=== PATIENT | male | born 1955 | race Caucasian/White ===

== ENCOUNTER 2017-06-15 12:17 | Emergency (ER) | payer OTHER ==
[~2017-06-15 12:17] MED LIST: DULE200A PO; LISI10TA3 PO; METF1000 PO; SYMB80AE INH
[2017-06-15 12:21] VITALS: BP 93/56; PULSE 107; RESP 20; TEMP 97.8; O2SAT 98
[2017-06-15 12:30] VITALS: BP 80/61; PULSE 90; RESP 16; O2SAT 94
[2017-06-15] MEDS ORDERED: SODIUM CHLOR 0.9% 1000 ML INJ 1,000 ML IV ONE (12:35)
[2017-06-15 12:38] VITALS: BP 101/72; PULSE 94; RESP 18; O2SAT 95
[2017-06-15 12:39] VITALS: O2SAT 94
--- NOTE | 2017-06-15 12:42 | PD ---
HPI Chief Complaint: Skin Problem Time Seen by Provider: 12:28 Travel History International Travel<30 days: No Contact w/Intl Traveler<30days: No Traveled to known affect area: No History of Present Illness HPI The patient is a 62-year-old male who presents to the emergency department for injuries to left upper extremity. The patient states he had one beer to drink earlier today, was trimming trees with a chainsaw, when a branch rolled over his left arm. The patient states she has some abrasions to the left arm and a puncture wound to left forearm. The patient does state he is somewhat lightheaded and dizzy from working out in the heat. The patient does have a history of diabetes and hypertension. The patient denies any injuries to the head, neck, chest, abdomen, or pelvis. He cannot recall his last tetanus shot. He denies any difficulty moving the left upper extremity and denies any weakness, numbness, or tingling to the left upper extremity. He does state is somewhat painful after the treatment branch struck his left arm. PFSH Past Medical History Diabetes: Yes Patient Takes Glucophage: Yes Hypertension: Yes Past Surgical History Abdominal Surgery: Yes (HERNIA) Other Surgery: Yes (ENLARGED SCROTUM) Social History Alcohol Use: Yes Tobacco Use: No Substance Use: No Allergies-Medications (Allergen,Severity, Reaction): Coded Allergies: No Known Allergies (Unverified , 06/15/17) Reported Meds & Prescriptions Reported Meds & Active Scripts Active Lisinopril 10 Mg Tab 10 Mg PO DAILY Metformin (Metformin HCl) 1,000 Mg Tab 1,000 Mg PO BIDPC With meals Review of Systems Except as stated in HPI: all other systems reviewed are Neg HENT: Positive: Lightheadedness Cardiovascular: Positive: Diaphoresis (from working out in the heat), No: Chest Pain or Discomfort Respiratory: No: Shortness of Breath Gastrointestinal: No: Nausea, Vomiting Skin: Positive Other (as noted in history of present illness) Neurologic: Positive: Dizziness, No: Paresthesia, Sensory Disturbance Physical Exam Narrative GENERAL: Awake, alert, pleasant 62-year-old male who appears his stated age and is in no acute respiratory distress. SKIN: The patient's clothes are wet from diaphoresis. The patient has superficial abrasions to the left humerus and left forearm. There is a puncture wound to the volar aspect left forearm notes approximately 2 cm in diameter with subcutaneous tissue visible but no visible tendon involvement. HEAD: Atraumatic. Normocephalic. EYES: Pupils equal and round. No scleral icterus. No injection or drainage. ENT: No nasal bleeding or discharge. Mucous membranes pink and moist. NECK: Trachea midline. No JVD. CARDIOVASCULAR: Regular, tachycardic with a heart rate of 105. RESPIRATORY: No accessory muscle use. Clear to auscultation. Breath sounds equal bilaterally. GASTROINTESTINAL: Abdomen soft, non-tender, nondistended. No rebound tenderness. MUSCULOSKELETAL: Patient has superficial abrasions to the left humerus and left forearm with a puncture wound to the volar aspect the left forearm. Strength with abduction of the left shoulder is 5/5. Flexion of the left elbow is 5/5. Extension left elbow is 5/5. Cleaning Custodian strength is 5/5. Positive left radial pulse. NEUROLOGICAL: Awake and alert. No obvious cranial nerve deficits. Motor grossly within normal limits. Normal speech. Sensation is intact in the radial , median, and ulnar distribution of the left upper extremity. PSYCHIATRIC: Appropriate mood and affect; insight and judgment normal. Data Data Last Documented VS Vital Signs Date Time Temp Pulse Resp B/P Pulse Ox O2 Delivery O2 Flow Rate FiO2 06/15/17 12:39 94 Room Air 06/15/17 12:38 94 18 101/72 06/15/17 12:21 97.8 Orders Electrocardiogram (06/15/17 12:35) Basic Metabolic Panel (Bmp) (06/15/17 12:35) Complete Blood Count With Diff (06/15/17 12:35) Ecg Monitoring (06/15/17 12:35) Iv Access Insert/Monitor (06/15/17 12:35) Oximetry (06/15/17 12:35) Sodium Chloride 0.9% Flush (Ns Flush) (06/15/17 12:45) Sodium Chlor 0.9% 1000 Ml Inj (Ns 1000 M (06/15/17 12:35) Tetanus/Diphtheria Tox Adult (Tetanus/Di (06/15/17 12:45) Lidocai-Epi 1%-1:100,000 Inj (Xylocaine- (06/15/17 13:00) Labs Laboratory Tests Test 06/15/17 12:40 White Blood Count 8.9 TH/MM3 Red Blood Count 4.50 MIL/MM3 Hemoglobin 14.9 GM/DL Hematocrit 43.9 % Mean Corpuscular Volume 97.5 FL Mean Corpuscular Hemoglobin 33.0 PG Mean Corpuscular Hemoglobin 33.9 % Concent Red Cell Distribution Width 12.5 % Platelet Count 177 TH/MM3 Mean Platelet Volume 7.3 FL Neutrophils (%) (Auto) 64.0 % Lymphocytes (%) (Auto) 26.0 % Monocytes (%) (Auto) 8.2 % Eosinophils (%) (Auto) 0.8 % Basophils (%) (Auto) 1.0 % Neutrophils # (Auto) 5.7 TH/MM3 Lymphocytes # (Auto) 2.3 TH/MM3 Monocytes # (Auto) 0.7 TH/MM3 Eosinophils # (Auto) 0.1 TH/MM3 Basophils # (Auto) 0.1 TH/MM3 CBC Comment DIFF FINAL Differential Comment Sodium Level 141 MEQ/L Potassium Level 3.9 MEQ/L Chloride Level 103 MEQ/L Carbon Dioxide Level 26.2 MEQ/L Anion Gap 12 MEQ/L Blood Urea Nitrogen 14 MG/DL Creatinine 1.20 MG/DL Estimat Glomerular Filtration 61 ML/MIN Rate Random Glucose 133 MG/DL Calcium Level 9.7 MG/DL MDM Medical Decision Making Medical Screen Exam Complete: Yes Emergency Medical Condition: Yes Medical Record Reviewed: Yes Interpretation(s) EKG reveals normal sinus rhythm with a rate in 95. Q waves noted in lead 2, 3, and aVF. Laboratory Tests Test 06/15/17 12:40 White Blood Count 8.9 TH/MM3 Red Blood Count 4.50 MIL/MM3 Hemoglobin 14.9 GM/DL Hematocrit 43.9 % Mean Corpuscular Volume 97.5 FL Mean Corpuscular Hemoglobin 33.0 PG Mean Corpuscular Hemoglobin 33.9 % Concent Red Cell Distribution Width 12.5 % Platelet Count 177 TH/MM3 Mean Platelet Volume 7.3 FL Neutrophils (%) (Auto) 64.0 % Lymphocytes (%) (Auto) 26.0 % Monocytes (%) (Auto) 8.2 % Eosinophils (%) (Auto) 0.8 % Basophils (%) (Auto) 1.0 % Neutrophils # (Auto) 5.7 TH/MM3 Lymphocytes # (Auto) 2.3 TH/MM3 Monocytes # (Auto) 0.7 TH/MM3 Eosinophils # (Auto) 0.1 TH/MM3 Basophils # (Auto) 0.1 TH/MM3 CBC Comment DIFF FINAL Differential Comment Sodium Level 141 MEQ/L Potassium Level 3.9 MEQ/L Chloride Level 103 MEQ/L Carbon Dioxide Level 26.2 MEQ/L Anion Gap 12 MEQ/L Blood Urea Nitrogen 14 MG/DL Creatinine 1.20 MG/DL Estimat Glomerular Filtration 61 ML/MIN Rate Random Glucose 133 MG/DL Calcium Level 9.7 MG/DL Differential Diagnosis Differential diagnosis includes abrasion, laceration, fracture, contusion, heatstroke, heat exhaustion, dehydration. Narrative Course IV was established, labs are drawn and sent, and the patient was placed on cardiac telemetry monitoring and continuous pulse oximetry monitoring. EKG was ordered and interpreted. The patient was administered 1 L of IV fluids. The patient's tetanus shot was updated and the patient had wound care to the abrasions. The patient's puncture wound was evaluated by the mid-level provider , please refer to the procedure note. The patient's blood pressure improved, systolic came up into the 120s and heart rate came down to the 70s. The patient 's lightheadedness and dizziness resolved. The patient is advised to have good wound care to the affected areas, Keflex as directed, and return if symptoms worsen or progress. Diagnosis Primary Impression: Multiple abrasions Additional Impression: Puncture wound Patient Instructions: General Instructions Additional Instructions: Medications as directed. Follow-up with your primary physician. Return if symptoms worsen or progress. Med/Other Pt SpecificInfo: Prescription(s) given Scripts Cephalexin (Keflex)500 Mg [id number] Mg PO Q6H 7 Days Ref 0 Prov:Pastor Wu MD 06/15/17 Disposition: 01 DISCHARGE HOME Condition: Stable Pastor Wu MD Jun 15, 2017 12:42
[2017-06-15 12:43] LABS: AUTOMATED NEUTROPHIL # 5.7 TH/MM3 (1.8-7.7); BASOPHIL # 0.1 TH/MM3 (0-0.2); EOSINOPHIL # 0.1 TH/MM3 (0-0.4); EOSINOPHIL % 0.8 % (0.0-4.0); HEMATOCRIT 43.9 % (39.0-51.0); HEMO FLAGS DIFF FINAL; LYMPHOCYTE # 2.3 TH/MM3 (1.0-4.8); MEAN CELL VOLUME 97.5 FL (80.0-100.0); MEAN CORPUSCULAR HGB CONC 33.9 % (32.0-36.0); MONO % 8.2 % (0.0-8.0); PLATELET COUNT 177 TH/MM3 (150-450); RED CELL DISTRIBUTION WIDTH 12.5 % (11.6-17.2); WHITE BLOOD COUNT 8.9 TH/MM3 (4.0-11.0)
[2017-06-15] MEDS ORDERED: SODIUM CHLORIDE 0.9% FLUSH 10 ML FLUSH IVF PRN (12:45)
[2017-06-15] MEDS ORDERED: TETANUS/DIPHTHERIA TOXOID ADULT 0.5 ML VIAL IM ONE (12:45)
[2017-06-15] MEDS ORDERED: LIDOCAINE 1%/EPINEPHrine 1:100,000 SOLN 20 ML VIAL INFIL ONE (13:00)
--- NOTE | 2017-06-15 13:18 | PD ---
Physical Exam Time Seen by Provider: 13:00 Narrative I was asked by Dr. Wu to repair laceration on the patient. Please see his note for further details. Data Data Last Documented VS Vital Signs Date Time Temp Pulse Resp B/P Pulse Ox O2 Delivery O2 Flow Rate FiO2 06/15/17 12:39 94 Room Air 06/15/17 12:38 94 18 101/72 06/15/17 12:21 97.8 Orders Electrocardiogram (06/15/17 12:35) Basic Metabolic Panel (Bmp) (06/15/17 12:35) Complete Blood Count With Diff (06/15/17 12:35) Ecg Monitoring (06/15/17 12:35) Iv Access Insert/Monitor (06/15/17 12:35) Oximetry (06/15/17 12:35) Sodium Chloride 0.9% Flush (Ns Flush) (06/15/17 12:45) Sodium Chlor 0.9% 1000 Ml Inj (Ns 1000 M (06/15/17 12:35) Tetanus/Diphtheria Tox Adult (Tetanus/Di (06/15/17 12:45) Lidocai-Epi 1%-1:100,000 Inj (Xylocaine- (06/15/17 13:00) Labs Laboratory Tests Test 06/15/17 12:40 White Blood Count 8.9 TH/MM3 Red Blood Count 4.50 MIL/MM3 Hemoglobin 14.9 GM/DL Hematocrit 43.9 % Mean Corpuscular Volume 97.5 FL Mean Corpuscular Hemoglobin 33.0 PG Mean Corpuscular Hemoglobin 33.9 % Concent Red Cell Distribution Width 12.5 % Platelet Count 177 TH/MM3 Mean Platelet Volume 7.3 FL Neutrophils (%) (Auto) 64.0 % Lymphocytes (%) (Auto) 26.0 % Monocytes (%) (Auto) 8.2 % Eosinophils (%) (Auto) 0.8 % Basophils (%) (Auto) 1.0 % Neutrophils # (Auto) 5.7 TH/MM3 Lymphocytes # (Auto) 2.3 TH/MM3 Monocytes # (Auto) 0.7 TH/MM3 Eosinophils # (Auto) 0.1 TH/MM3 Basophils # (Auto) 0.1 TH/MM3 CBC Comment DIFF FINAL Differential Comment [facility] Medical Record Reviewed: Yes Supervised Visit with ROSA: Yes Procedures Procedure Narrative LACERATION LOCATION: Left forearm LENGTH: 2.5 cm NUMBER OF STITCHES/CHANDLER: 2 simple interrupted REPAIR: The area of the laceration was prepped with Betadine and sterilely draped. The laceration was infiltrated with 1% lidocaine with epinephrine. The wound was copiously irrigated and explored without evidence of foreign body , tendon injury or neurovascular injury. The wound was closed using 5-0 Prolene. This was a single layer repair. A sterile dressing was applied. The patient was advised to keep the dressing clean and dry. Patient tolerated the procedure well. Condition: Stable Brenda Esteves Jun 15, 2017 13:18
[2017-06-15 13:30] LABS: POTASSIUM 3.9 MEQ/L (3.5-5.1)
[2017-06-15 13:33] LABS: BICARBONATE 26.2 MEQ/L (21.0-32.0)
[2017-06-15 13:47] VITALS: BP 117/78; PULSE 89; RESP 18; O2SAT 95
[2017-06-15] MEDS ORDERED: CEPH-460 PO (13:50)
--- NOTE | 2017-06-15 16:41 | EKG ---
Date Performed: 06/15/2017 Time Performed: 12:45:13 PTAGE: 62 years EKG: Sinus rhythm INFERIOR MYOCARDIAL INFARCTION ABNORMAL ECG PREVIOUS TRACING : 06/13/1995 14.19 Since previous tracing, the inferior Q-waves are new. Other gomez, no significant change. DOCTOR: Ricky Vargas Interpretating Date/Time 06/15/2017 16:41:06
== END 2017-06-15 14:13 | disposition home or self-care (01) ==
LOC: PHED 12:17
DX: S51.832A Puncture wound without foreign body of left forearm, initial encounter (principal); S50.812A Abrasion of left forearm, initial encounter; S40.812A Abrasion of left upper arm, initial encounter; R42 Dizziness and giddiness; R94.31 Abnormal electrocardiogram [ECG] [EKG]; E11.9 Type 2 diabetes mellitus without complications; I10 Essential (primary) hypertension; W20.8XXA Other cause of strike by thrown, projected or falling object, initial encounter; Y93.H2 Activity, gardening and landscaping; Z23 Encounter for immunization; Z79.84 Long term (current) use of oral hypoglycemic drugs
CPT/HCPCS: 12001; 80048; 85025; 90471; 90714; 93005; 96360; 99284; J7030